=== PATIENT | male | born 1955 | race Caucasian/White ===

== ENCOUNTER 2023-02-27 02:55 | Emergency (ER) | payer OTHER, MEDICARE ==
[~2023-02-27] VITALS: Ht 177.8 cm; Wt 93.0 kg
[2023-02-27 03:04] VITALS: BP_SYST 169; PULSE 104; RESP 24; TEMP 97.9; O2SAT 98
[2023-02-27 03:57] LABS: BASOPHILS # (AUTO) 0.1 K/uL (0.0-0.2); BASOPHILS % (AUTO) 0.5 % (0.0-2.0); EOSINOPHILS # (AUTO) 1.6 K/uL (0.0-0.4); EOSINOPHILS % (AUTO) 12.4 % (0.0-4.0); HEMATOCRIT 29.4 % (36-54); HEMOGLOBIN 9.8 g/dL (14.0-18.0); LYMPHOCYTES # (AUTO) 2.7 K/uL (1.0-5.5); LYMPHOCYTES % (AUTO) 21.4 % (20.5-51.5); MEAN CORPUSCULAR HEMOGLOBIN 31 pg (27-31); MEAN CORPUSCULAR HGB CONC 33 % (32-36); MEAN CORPUSCULAR VOLUME 94 fL (79.0-98.0); MONOCYTES # (AUTO) 0.9 K/uL (0.0-1.0); MONOCYTES % (AUTO) 7.2 % (1.7-9.3); NEUTROPHILS # (AUTO) 7.5 K/uL (1.8-7.7); NEUTROPHILS % (AUTO) 58.5 % (40.0-70.0); PLATELET COUNT (AUTO) 296 K/uL (130-430); RED BLOOD CELL COUNT(AUTO) 3.12 MIL/uL (4.2-6.2); RED CELL DISTRIBUTION WIDTH 13.4 % (9.0-15.0); WHITE BLOOD COUNT (AUTO) 12.8 K/uL (4.8-10.8)
[2023-02-27] MEDS ORDERED: NACL 0.9% 1,000 ML IV ONE (04:15)
[2023-02-27 04:37] LABS: INFLUENZA TYPE A Negative (NEGATIVE); INFLUENZA TYPE B NEGATIVE (NEGATIVE)
[2023-02-27 04:43] LABS: BILIRUBIN,URINE NEGATIVE (NEGATIVE); BLOOD, URINE NEGATIVE (NEGATIVE); CLARITY/URINE CLEAR (CLEAR); COLOR,URINE YELLOW (YELLOW); GLUCOSE,URINE NEGATIVE (NEGATIVE); KETONES,URINE NEGATIVE (NEGATIVE); LEUKOCYTE ESTERASE ,URINE NEGATIVE (NEGATIVE); NITRITE, URINE NEGATIVE (NEGATIVE); PH,URINE 5.5 (5.0-8.0); PROTEIN URINE NEGATIVE (NEGATIVE); UROBILINOGEN,URINE 0.2 (0.2-1.0)
[2023-02-27 04:47] LABS: ALANINE AMINOTRANSFERASE 31 U/L (12-78); ALBUMIN 3.9 g/dL (3.4-4.8); ANION GAP 9 (5-15); ASPARTATE AMINOTRANSFERASE 18 U/L (10-37); CALCIUM 10.2 mg/dL (8.4-11.0); CARBON DIOXIDE 28 mmol/L (23-29); CHLORIDE 104 mmol/L (98-107); GFR AFRICAN AMERICAN 56 mL/min (>90); GLUCOSE 150 mg/dL (74-106); POTASSIUM 3.8 mmol/L (3.5-5.1); SODIUM SERUM 141 mmol/L (136-145); TOTAL BILIRUBIN 0.1 mg/dL (0.0-1.0); TOTAL PROTEIN, SERUM 7.2 g/dL (6.4-8.3); UREA NITROGEN, BLOOD 28 mg/dL (8-21)
[2023-02-27 04:48] LABS: GFR NON AFRICAN-AMERICAN 46 mL/min (>90)
[2023-02-27 05:24] VITALS: BP_SYST 151; PULSE 78; RESP 18; O2SAT 96
== END 2023-02-27 05:24 | disposition home or self-care (01) ==
LOC: SED 02:55
DX: R00.2 Palpitations (principal); B34.9 Viral infection, unspecified; R06.02 Shortness of breath; R07.9 Chest pain, unspecified; Z88.8 Allergy status to other drugs, medicaments and biological substances; Z79.899 Other long term (current) drug therapy; Z20.822 Contact with and (suspected) exposure to COVID-19
CPT/HCPCS: 99285; 96360; 71045; 87426; 80053; 81001; 85025; 87040; 87086; 84484; 36415; 93005; 83605; 81003; 87804 ×2; J7030

== ENCOUNTER 2023-12-17 13:21 | Emergency (ER) | payer OTHER, MEDICARE ==
[~2023-12-17] VITALS: Ht 177.8 cm; Wt 86.2 kg
[~2023-12-17 13:21] MED LIST: LEVO-62 PO; LEVO125T8 PO; LORAZEPAM; ONDA8TAB60 PO; OXYC10TA56 PO; OXYIR5 PO; SIMV-43 PO; [UNRECOGNIZED DRUG - CODE]
[2023-12-17 13:48] VITALS: BP_SYST 114; PULSE 102; RESP 18; TEMP 98.3; O2SAT 94
[2023-12-19] MEDS ORDERED: MIDO5TAB4 PO (15:29)
[2023-12-19] MEDS ORDERED: LISI20TA30 PO (15:32)
[2023-12-19] MEDS ORDERED: SILD100T70 PO (15:32)
[2023-12-19] MEDS ORDERED: METO-304 PO (15:32)
[2023-12-19] MEDS ORDERED: LEVO137T2 PO (15:32)
== END 2023-12-17 14:04 | disposition left against medical advice (07) ==
LOC: SED 13:21
DX: R53.1 Weakness (principal); Z53.21 Procedure and treatment not carried out due to patient leaving prior to being seen by health care provider

== ENCOUNTER 2023-12-23 13:32 | Inpatient (IN) | payer OTHER, MEDICARE ==
[~2023-12-23] VITALS: Ht 177.8 cm; Wt 88.9 kg
[~2023-12-23 13:32] MED LIST changes: +LEVO137T2 PO; +LISI20TA30 PO; -LORAZEPAM; +METO-304 PO; +MIDO5TAB4 PO
[2023-12-23 13:36] VITALS: BP_SYST 94; PULSE 98; RESP 19; TEMP 97.4; O2SAT 99
[2023-12-23 14:00] LABS: BASOPHILS # (AUTO) 0.1 K/uL (0.0-0.2); BASOPHILS % (AUTO) 0.6 % (0.0-2.0); EOSINOPHILS # (AUTO) 0.1 K/uL (0.0-0.4); EOSINOPHILS % (AUTO) 0.6 % (0.0-4.0); HEMATOCRIT 25.5 % (36-54); LYMPHOCYTES # (AUTO) 1.2 K/uL (1.0-5.5); LYMPHOCYTES % (AUTO) 6.8 % (20.5-51.5); MEAN CORPUSCULAR HEMOGLOBIN 29 pg (27-31); MEAN CORPUSCULAR HGB CONC 32 % (32-36); MEAN CORPUSCULAR VOLUME 92 fL (79.0-98.0); MONOCYTES # (AUTO) 1.9 K/uL (0.0-1.0); MONOCYTES % (AUTO) 10.9 % (1.7-9.3); NEUTROPHILS # (AUTO) 14.1 K/uL (1.8-7.7); NEUTROPHILS % (AUTO) 81.1 % (40.0-70.0); PLATELET COUNT (AUTO) 607 K/uL (130-430); RED BLOOD CELL COUNT(AUTO) 2.77 MIL/uL (4.2-6.2); RED CELL DISTRIBUTION WIDTH 16.7 % (9.0-15.0); WHITE BLOOD COUNT (AUTO) 17.4 K/uL (4.8-10.8)
[2023-12-23 14:07] LABS: INR 1.1 (0.80-1.20); PROTHROMBIN TIME 11.3 SECS (9.5-12.5)
[2023-12-23 14:11] LABS: ALANINE AMINOTRANSFERASE 14 U/L (12-78); ALBUMIN 2.1 g/dL (3.4-4.8); ANION GAP 13 (5-15); ASPARTATE AMINOTRANSFERASE 138 U/L (10-37); BILIRUBIN,DIRECT 0.1 mg/dL (0.0-0.3); CALCIUM 8.3 mg/dL (8.4-11.0); CARBON DIOXIDE 30 mmol/L (23-29); CHLORIDE 95 mmol/L (98-107); CREATINE KINASE, TOTAL 226 U/L (39-308); CREATININE 5.14 mg/dL (0.55-1.30); GFR AFRICAN AMERICAN 15 mL/min (>90); GFR NON AFRICAN-AMERICAN 12 mL/min (>90); GLUCOSE 110 mg/dL (74-106); POTASSIUM 3.7 mmol/L (3.5-5.1); SODIUM SERUM 138 mmol/L (136-145); TOTAL BILIRUBIN 0.3 mg/dL (0.0-1.0); TOTAL PROTEIN, SERUM 6.4 g/dL (6.4-8.3); UREA NITROGEN, BLOOD 34 mg/dL (8-21)
[2023-12-23 14:25] LABS: COVID19 ANTIGEN SOFIA FIA NEGATIVE (NEGATIVE)
[2023-12-23 14:31] LABS: INFLUENZA TYPE A Negative (NEGATIVE); INFLUENZA TYPE B NEGATIVE (NEGATIVE)
[2023-12-23] MEDS: MORPHINE 2 MG/ML INJ. SYRINGE IVP ONE (14:45)
[2023-12-23] MEDS: NACL 0.9% 1,000 ML IV ONE (14:50)
[2023-12-23] MEDS ORDERED: PIPERACILLIN/TAZOBACTAM 3.375 GM/VIAL (ZOSYN) IV ONE ×2 (14:57→14:59)
[2023-12-23] MEDS: PIPERACILLIN/TAZO 3.375 GM in NS 50 ML IV ONE (14:58)
[2023-12-23] MEDS: ONDANSETRON HCL 4 MG/2 ML VIAL IVP ONE (14:58)
[2023-12-23] MEDS ORDERED: HYDROmorphone 1 MG/ML INJ. CARTRIDGE IVP PRN (15:45)
[2023-12-23] MEDS ORDERED: LORazepam 2 MG/ML VIAL IVP PRN (15:45)
[2023-12-23] MEDS ORDERED: ALBUTEROL SULFATE 0.083% 2.5 MG/3 ML VIAL.NEB INH PRN (15:45)
[2023-12-23] MEDS ORDERED: MORPHINE 2 MG/ML INJ. SYRINGE IVP PRN (15:45)
[2023-12-23 16:08] VITALS: BP_SYST 94; PULSE 98; O2SAT 99
[2023-12-23] MEDS ORDERED: ACETAMINOPHEN 325 MG TABLET PO PRN (16:15)
[2023-12-23 17:09] LABS: BILIRUBIN,URINE 2+ (NEGATIVE); BLOOD, URINE 3+ (NEGATIVE); CLARITY/URINE CLOUDY (CLEAR); COLOR,URINE BROWN (YELLOW); GLUCOSE,URINE TRACE (NEGATIVE); KETONES,URINE TRACE (NEGATIVE); LEUKOCYTE ESTERASE ,URINE TRACE (NEGATIVE); NITRITE, URINE POSITIVE (NEGATIVE); PH,URINE 6.5 (5.0-8.0); PROTEIN URINE 3+ (NEGATIVE)
[2023-12-23] MEDS: VANCOMYCIN HCL 1,000 MG in NS 250 ML IV ONE (17:23)
[2023-12-23 18:28] LABS: BACTERIA,URINE MANY /HPF (None Seen); RBC,URINE >100 /HPF (0-3); WBC,URINE 20-50 /HPF (0-3)
[2023-12-23 18:29] LABS: MUCUS,URINE 1+ /LPF (None Seen); URINE AMORPHOUS URATE 3+ /HPF (None Seen)
[2023-12-23] MEDS: HEPARIN SODIUM,PORCINE 5,000 UNITS/ML VIAL SUBCUT SCH (18:31)
[2023-12-23 18:36] VITALS: BP_SYST 108; PULSE 79; RESP 28; TEMP 97.3; O2SAT 95
[2023-12-23 19:55] VITALS: BP_SYST 98; PULSE 87; RESP 18; TEMP 97; O2SAT 98
[2023-12-23] MEDS: PIPERACILLIN/TAZO 2.25G/DEX-IS 50 ML IV SCH (20:56)
[2023-12-23] MEDS ORDERED: PIPERACILLIN/TAZO 2.25G/DEX-IS 50 ML IV SCH (21:00)
[2023-12-23] MEDS: HEPARIN SODIUM,PORCINE 5,000 UNITS/ML VIAL IVP ONE ×2 (22:13→22:14)
[2023-12-23] MEDS: ACETAMINOPHEN 325 MG TABLET PO PRN (23:47)
[2023-12-24 00:08] VITALS: BP_SYST 91; PULSE 92; RESP 18; TEMP 97.6; O2SAT 96
[2023-12-24] MEDS: LEVOTHYROXINE SODIUM 0.125 MG TABLET PO SCH (05:34)
[2023-12-24 07:30] VITALS: BP_SYST 95; PULSE 93; RESP 18; TEMP 97.3; O2SAT 96
[2023-12-24 07:56] LABS: BASOPHILS # (AUTO) 0.1 K/uL (0.0-0.2); BASOPHILS % (AUTO) 0.9 % (0.0-2.0); EOSINOPHILS # (AUTO) 0.1 K/uL (0.0-0.4); EOSINOPHILS % (AUTO) 0.9 % (0.0-4.0); HEMATOCRIT 22.4 % (36-54); HEMOGLOBIN 7.3 g/dL (14.0-18.0); LYMPHOCYTES # (AUTO) 0.9 K/uL (1.0-5.5); LYMPHOCYTES % (AUTO) 5.8 % (20.5-51.5); MEAN CORPUSCULAR HEMOGLOBIN 30 pg (27-31); MEAN CORPUSCULAR HGB CONC 33 % (32-36); MEAN CORPUSCULAR VOLUME 91 fL (79.0-98.0); MONOCYTES # (AUTO) 1.8 K/uL (0.0-1.0); MONOCYTES % (AUTO) 11.7 % (1.7-9.3); NEUTROPHILS # (AUTO) 12.3 K/uL (1.8-7.7); NEUTROPHILS % (AUTO) 80.7 % (40.0-70.0); PLATELET COUNT (AUTO) 510 K/uL (130-430); RED BLOOD CELL COUNT(AUTO) 2.45 MIL/uL (4.2-6.2); RED CELL DISTRIBUTION WIDTH 16.2 % (9.0-15.0); WHITE BLOOD COUNT (AUTO) 15.2 K/uL (4.8-10.8)
[2023-12-24 08:58] LABS: CALCIUM 8.1 mg/dL (8.4-11.0); CREATININE 4.18 mg/dL (0.55-1.30); PHOSPHORUS 3.5 mg/dL (2.7-4.5); TOTAL BILIRUBIN 0.3 mg/dL (0.0-1.0); TOTAL PROTEIN, SERUM 5.9 g/dL (6.4-8.3)
[2023-12-24] MEDS: PIPERACILLIN/TAZO 2.25G/DEX-IS 50 ML IV SCH (09:46)
[2023-12-24] MEDS: PANTOPRAZOLE SODIUM 40 MG TAB PO SCH (09:46)
[2023-12-24 11:52] VITALS: BP_SYST 102; PULSE 90; RESP 17; TEMP 97.3; O2SAT 96
[2023-12-24 16:00] VITALS: BP_SYST 110; PULSE 84; RESP 17; TEMP 97.8; O2SAT 95
[2023-12-24] MEDS: ALBUMIN HUMAN 25% 100 ML IV ONE (17:06)
[2023-12-24] MEDS: HEPARIN SODIUM,PORCINE 5,000 UNITS/ML VIAL SUBCUT ONE (17:36)
[2023-12-24] MEDS ORDERED: POLYETHYLENE GLYCOL 3350, 17 GM/ POWD.PACK PO ONE (18:15)
[2023-12-24] MEDS ORDERED: MIDODRINE HCL 5 MG TABLET (PROAMATINE) PO SCH (19:00)
[2023-12-24 21:00] VITALS: O2SAT 95
[2023-12-24 22:30] VITALS: BP_SYST 95; PULSE 98; RESP 20; TEMP 97.7
[2023-12-24] MEDS: MIDODRINE HCL 5 MG TABLET (PROAMATINE) PO SCH (22:40)
[2023-12-25] VITALS (7 sets, daily range): BP systolic 89–100; PULSE 83–97; RESP 16–20; TEMP 97.1–98.5; O2SAT 97–98
[2023-12-25 08:38] LABS: BASOPHILS # (AUTO) 0.2 K/uL (0.0-0.2); BASOPHILS % (AUTO) 1.1 % (0.0-2.0); EOSINOPHILS # (AUTO) 0.3 K/uL (0.0-0.4); EOSINOPHILS % (AUTO) 1.8 % (0.0-4.0); HEMOGLOBIN 7.1 g/dL (14.0-18.0); LYMPHOCYTES # (AUTO) 0.8 K/uL (1.0-5.5); LYMPHOCYTES % (AUTO) 5.6 % (20.5-51.5); MEAN CORPUSCULAR HEMOGLOBIN 30 pg (27-31); MEAN CORPUSCULAR HGB CONC 32 % (32-36); MEAN CORPUSCULAR VOLUME 91 fL (79.0-98.0); MONOCYTES # (AUTO) 1.9 K/uL (0.0-1.0); MONOCYTES % (AUTO) 12.4 % (1.7-9.3); NEUTROPHILS % (AUTO) 79.1 % (40.0-70.0); PLATELET COUNT (AUTO) 474 K/uL (130-430); RED BLOOD CELL COUNT(AUTO) 2.41 MIL/uL (4.2-6.2); RED CELL DISTRIBUTION WIDTH 16.6 % (9.0-15.0); WHITE BLOOD COUNT (AUTO) 15.2 K/uL (4.8-10.8)
[2023-12-25] MEDS ORDERED: POLYETHYLENE GLYCOL 3350, 17 GM/ POWD.PACK PO SCH (09:00)
[2023-12-25 09:26] LABS: ALBUMIN 2.2 g/dL (3.4-4.8); CALCIUM 8.4 mg/dL (8.4-11.0); CREATININE 4.28 mg/dL (0.55-1.30); POTASSIUM 3.8 mmol/L (3.5-5.1); TOTAL BILIRUBIN 0.4 mg/dL (0.0-1.0)
[2023-12-25] MEDS: OXYCODONE/ACETAMINOPHEN *10*mg/325 mg TABLET PO ONE (14:05)
[2023-12-25] MEDS ORDERED: traZODone HCL 50 MG TABLET (DESYREL) PO PRN (14:45)
[2023-12-25] MEDS: MIDODRINE HCL 5 MG TABLET (PROAMATINE) PO SCH (16:37)
[2023-12-25] MEDS: DOCUSATE SODIUM 100 MG CAPSULE PO SCH (20:46)
[2023-12-25] MEDS: SENNOSIDES 8.6 MG TABLET PO SCH (20:47)
[2023-12-25] MEDS: oxyCODONE HCL 10 MG TAB.ER.12H PO SCH (20:47)
[2023-12-25] MEDS ORDERED: OXYCODONE/ACETAMINOPHEN *10*mg/325 mg TABLET PO SCH (21:00)
[2023-12-26] VITALS (7 sets, daily range): BP systolic 91–98; PULSE 91–96; RESP 16–20; TEMP 96.7–97.9; O2SAT 94–98
[2023-12-26 08:06] LABS: BASOPHILS # (AUTO) 0.2 K/uL (0.0-0.2); BASOPHILS % (AUTO) 1.3 % (0.0-2.0); EOSINOPHILS # (AUTO) 0.3 K/uL (0.0-0.4); EOSINOPHILS % (AUTO) 2.2 % (0.0-4.0); HEMATOCRIT 24.7 % (36-54); HEMOGLOBIN 7.8 g/dL (14.0-18.0); LYMPHOCYTES # (AUTO) 0.9 K/uL (1.0-5.5); LYMPHOCYTES % (AUTO) 6.3 % (20.5-51.5); MEAN CORPUSCULAR HEMOGLOBIN 29 pg (27-31); MEAN CORPUSCULAR HGB CONC 32 % (32-36); MEAN CORPUSCULAR VOLUME 93 fL (79.0-98.0); MONOCYTES # (AUTO) 1.7 K/uL (0.0-1.0); MONOCYTES % (AUTO) 11.5 % (1.7-9.3); NEUTROPHILS # (AUTO) 11.6 K/uL (1.8-7.7); NEUTROPHILS % (AUTO) 78.7 % (40.0-70.0); PLATELET COUNT (AUTO) 537 K/uL (130-430); RED BLOOD CELL COUNT(AUTO) 2.67 MIL/uL (4.2-6.2); WHITE BLOOD COUNT (AUTO) 14.7 K/uL (4.8-10.8)
[2023-12-26 08:29] LABS: CALCIUM 8.7 mg/dL (8.4-11.0); CREATININE 5.37 mg/dL (0.55-1.30); POTASSIUM 3.9 mmol/L (3.5-5.1)
[2023-12-26] MEDS: ALBUMIN HUMAN 25% 100 ML IV ONE (14:34)
[2023-12-26] MEDS: HEPARIN SODIUM,PORCINE 5,000 UNITS/ML VIAL MC ONE (14:35)
[2023-12-27 00:04] VITALS: BP_SYST 98; PULSE 96; RESP 18; TEMP 98; O2SAT 98
[2023-12-27] MEDS ORDERED: BELLADONNA ALKALOIDS/PHENOBARB 5 ML UDC GT ONE (03:00)
[2023-12-27] MEDS ORDERED: MAG-AL HYDROX/SIMETH 30 ML UDC PO ONE (03:00)
[2023-12-27] MEDS: CALCIUM CARBONATE 500 MG/ TAB.CHEW PO PRN (03:11)
[2023-12-27] MEDS ORDERED: MAG HYDROX/AL HYDROX/SIMETH 30 ML, BELLADONNA ALKALOIDS/PHENOBARB 10 ML, LIDOCAINE VISC... PO ONE (03:15)
[2023-12-27] MEDS ORDERED: LIDOCAINE VISCOUS 2%, 15 ML UDC MM ONE (03:15)
[2023-12-27 06:22] LABS: BASOPHILS # (AUTO) 0.2 K/uL (0.0-0.2); BASOPHILS % (AUTO) 1.4 % (0.0-2.0); EOSINOPHILS # (AUTO) 0.3 K/uL (0.0-0.4); EOSINOPHILS % (AUTO) 1.7 % (0.0-4.0); HEMATOCRIT 23.4 % (36-54); HEMOGLOBIN 7.4 g/dL (14.0-18.0); LYMPHOCYTES # (AUTO) 1.2 K/uL (1.0-5.5); LYMPHOCYTES % (AUTO) 8.2 % (20.5-51.5); MEAN CORPUSCULAR HEMOGLOBIN 29 pg (27-31); MEAN CORPUSCULAR HGB CONC 32 % (32-36); MEAN CORPUSCULAR VOLUME 91 fL (79.0-98.0); MONOCYTES # (AUTO) 2.1 K/uL (0.0-1.0); MONOCYTES % (AUTO) 14.4 % (1.7-9.3); NEUTROPHILS # (AUTO) 10.7 K/uL (1.8-7.7); NEUTROPHILS % (AUTO) 74.3 % (40.0-70.0); PLATELET COUNT (AUTO) 498 K/uL (130-430); RED BLOOD CELL COUNT(AUTO) 2.56 MIL/uL (4.2-6.2); RED CELL DISTRIBUTION WIDTH 17.2 % (9.0-15.0); WHITE BLOOD COUNT (AUTO) 14.4 K/uL (4.8-10.8)
[2023-12-27 06:28] LABS: CALCIUM 8.6 mg/dL (8.4-11.0); CREATININE 4.17 mg/dL (0.55-1.30); POTASSIUM 4.1 mmol/L (3.5-5.1)
[2023-12-27 08:00] VITALS: BP_SYST 101; PULSE 92; RESP 18; TEMP 98.2; O2SAT 98
[2023-12-27] MEDS ORDERED: ONDANSETRON HCL 4 MG/2 ML VIAL IVP PRN (10:30)
[2023-12-27] MEDS ORDERED: AMOX-423 PO (11:17)
[2023-12-27] MEDS ORDERED: MIDO10TA PO (11:17)
[2023-12-27 12:42] VITALS: BP_SYST 101; PULSE 91; RESP 16; TEMP 97.4; O2SAT 98
[2023-12-27] MEDS ORDERED: MAG-AL HYDROX/SIMETH 30 ML UDC PO PRN (15:45)
[2023-12-27 16:30] VITALS: BP_SYST 92; PULSE 103; RESP 16; TEMP 97.8; O2SAT 94
[2023-12-27 20:00] VITALS: BP_SYST 101; PULSE 114; RESP 22; TEMP 98.2; O2SAT 95; O2SAT 96
[2023-12-28] VITALS: BP_SYST 100; PULSE 120; RESP 26; TEMP 97.7; O2SAT 95
[2023-12-28] MEDS: OXYCODONE/ACETAMINOPHEN 5-325 TABLET PO PRN (04:04)
[2023-12-28 07:35] VITALS: BP_SYST 93; PULSE 105; RESP 18; TEMP 97.7; O2SAT 95
[2023-12-28 11:13] VITALS: BP_SYST 92; PULSE 57; RESP 16; TEMP 96.7; O2SAT 95
[2023-12-28] MEDS: ALBUMIN HUMAN 25% 100 ML IV ONE (11:50)
[2023-12-28 12:14] VITALS: BP_SYST 99; PULSE 107; RESP 18; TEMP 96.4; O2SAT 96
[2023-12-28 15:15] VITALS: BP_SYST 91; PULSE 108; RESP 16; TEMP 96.1; O2SAT 97
== END 2023-12-28 16:35 | disposition hospice, home (50) | DRG 374 ==
LOC: SED 13:32 → STU 15:38
PROVIDERS: ADMIT Student in an Organized Health Care Education/Training Program; ATTEND Student in an Organized Health Care Education/Training Program
PROC: 5A1D70Z Performance of Urinary Filtration, Intermittent, Less than 6 Hours Per Day (ICD-10-PCS; 2023-12-24)
PROC: 5A1D70Z Performance of Urinary Filtration, Intermittent, Less than 6 Hours Per Day (ICD-10-PCS; 2023-12-25)
PROC: 5A1D70Z Performance of Urinary Filtration, Intermittent, Less than 6 Hours Per Day (ICD-10-PCS; 2023-12-26)
PROC: 5A1D70Z Performance of Urinary Filtration, Intermittent, Less than 6 Hours Per Day (ICD-10-PCS; 2023-12-27)
PROC: 0TP5X0Z Removal of Drainage Device from Kidney, External Approach (ICD-10-PCS; principal; 2023-12-28)
DX: C78.6 Secondary malignant neoplasm of retroperitoneum and peritoneum (principal); E43 Unspecified severe protein-calorie malnutrition; J96.01 Acute respiratory failure with hypoxia; N18.6 End stage renal disease; E87.20 Acidosis, unspecified; N13.8 Other obstructive and reflux uropathy; I12.0 Hypertensive chronic kidney disease with stage 5 chronic kidney disease or end stage renal disease; N13.30 Unspecified hydronephrosis; N17.9 Acute kidney failure, unspecified; C79.51 Secondary malignant neoplasm of bone; Z20.822 Contact with and (suspected) exposure to COVID-19; E78.5 Hyperlipidemia, unspecified; E03.9 Hypothyroidism, unspecified; Z99.2 Dependence on renal dialysis; Z79.899 Other long term (current) drug therapy; Z88.8 Allergy status to other drugs, medicaments and biological substances; Z68.28 Body mass index [BMI] 28.0-28.9, adult; D63.8 Anemia in other chronic diseases classified elsewhere; D63.0 Anemia in neoplastic disease; Z85.46 Personal history of malignant neoplasm of prostate
CPT/HCPCS: 36415; 50432; 71045; 80048; 80053; 80076; 81000; 81001; 81015; 82550; 83605; 83735; 83880; 84100; 84484; 85025; 85610; 85730; 86886; 86900; 86901; 86920; 87040; 87070; 87081; 87086; 90935; 90937; 93005; 94070; 94640; 94760; 96365; 97110-GP; 97116-GP; 97530-GP; 99291; 99292; G0378; J1644; J2270; J2405; J2543; J3370; J7050